=== PATIENT | male | born 1965 | race Asian ===

== ENCOUNTER 2016-08-21 14:04 | Emergency (ER) | payer MEDICAID ==
[~2016-08-21] VITALS: Ht 167.6 cm; Wt 49.4 kg
[~2016-08-21 14:04] MED LIST: ACETAMINOPHEN-1 EAC1 ORAL; ALLEGRA ALLERGY60 M1 PO; ASPIR 8181 MG ORAL; ATORVASTATIN CA40 MG ORAL; BACTRIM DS TAB1 EAC1 ORAL; BENAZEPRIL HCL10 MG ORAL; CLOTRIMAZOLE15 GM TOPIC; FLUTICASONE PRO16 G1 NASAL; GLIPIZIDE5 MG ORAL; LANTUS SOL100 UNIT/1 SUBQ; LEVAQUIN500 MG ORAL; LEVEMIR FL100 UNIT/1 SUBQ; LORATADINE10 M1 PO; MAGNESIUM CITR296 M1 PO; METFORMIN HCL1000 M1 ORAL; MIRALAX17 G2 ORAL; NOVOLOG100 UNITS1; PROVENTIL HFA6.7 G1 IH; TRAMADOL HCL50 MG ORAL
[2016-08-21 14:15] VITALS: BP 107/69
[2016-08-21 14:54] LABS: BASOPHILS % (AUTO) 0.8 % (0.0-2.0); EOSINOPHILS % (AUTO) 2.3 % (0.0-3.0); LYMPHOCYTES % (AUTO) 22.5 % (20.0-45.0); MEAN CORPUSCULAR HEMOGLOBIN 30.4 PG (27.0-31.0); MEAN CORPUSCULAR VOLUME 87 FL (80-99); MONOCYTES % (AUTO) 6.1 % (1.0-10.0); NEUTROPHILS % (AUTO) 68.2 % (45.0-75.0); PLATELET COUNT 238 K/UL (150-450); RED BLOOD COUNT 4.36 M/UL (4.70-6.10); RED CELL DISTRIBUTION WIDTH 11.6 % (11.6-14.8); WHITE BLOOD COUNT 8.1 K/UL (4.8-10.8)
[2016-08-21 14:55] VITALS: BP 107/77
[2016-08-21 15:08] LABS: ALANINE AMINOTRANSFERASE 10 U/L (3-41); ALBUMIN/GLOBULIN RATIO 1.4 (1.0-2.7); ANION GAP 17 (5-15); ASPARTATE AMINO TRANSFERASE 11 U/L (5-40); CALCIUM 9.1 mg/dL (8.6-10.2); CARBON DIOXIDE 21 mEQ/L (20-30); CHLORIDE 89 mEQ/L (98-107); CREATININE 0.9 mg/dL (0.7-1.2); GLOMERULAR FILTRATION RATE > 60 mL/min (>60); HEMOLYSIS 4; MAGNESIUM 1.7 mg/dL (1.7-2.5); POTASSIUM 4.2 mEQ/L (3.4-4.9); SODIUM 127 mEQ/L (135-145); TOTAL PROTEIN 7.2 g/dL (6.6-8.7)
[2016-08-21 16:49] VITALS: BP 112/81
--- NOTE | 2016-08-21 16:54 | Emergency Room Report ---
History of Present Illness General Chief Complaint: General Complaint Source: Patient Present Illness HPI 51-year-old male presents ED for evaluation. Patient referred here by PMD because his blood sugar was high. Accu-Chek here is critically high. Patient notes history of diabetes. Is on medications at home. States that he is not taking the medications for one week because he is trying to hold herbal therapies. States he feels okay. Denies any fevers or chills. Denies weakness. Denies nausea or vomiting. No other aggravating or relieving factors. Denies any other associated symptoms Allergies: Coded Allergies: No Known Allergies (Unverified , 06/03/14) Patient History Past Medical History: DM Past Surgical History: none Pertinent Family History: none Social History: Denies: alcohol use, drug use, smoking Immunizations: UTD Reviewed Nursing Documentation: PMH: Agreed, PSxH: Agreed Nursing Documentation-PMH Past Medical History: No History, Except For Hx Diabetes: Yes Review of Systems All Other Systems: negative except mentioned in HPI Physical Exam Vital Signs Date Time Temp Pulse Resp B/P Pulse Ox O2 Delivery O2 Flow Rate FiO2 08/21/16 14:10 97.7 74 18 107/69 98 Room Air Sp02 EP Interpretation: reviewed, normal General Appearance: no apparent distress, alert, GCS 15, non-toxic Head: normocephalic, atraumatic Eyes: bilateral eye PERRL, bilateral eye normal inspection ENT: hearing grossly normal, normal pharynx, no angioedema, normal voice Neck: full range of motion, supple/symm/no masses Respiratory: chest non-tender, lungs clear, normal breath sounds, speaking full sentences Cardiovascular #1: regular rate, rhythm, no edema Cardiovascular #2: 2+ carotid (R), 2+ carotid (L), 2+ radial (R), 2+ radial (L) , 2+ dorsalis pedis (R), 2+ dorsalis pedis (L) Gastrointestinal: normal bowel sounds, non tender, soft, non-distended, no guarding, no rebound Rectal: deferred Genitourinary: normal inspection, no CVA tenderness Musculoskeletal: back normal, gait/station normal, normal range of motion, non- tender Neurologic: alert, oriented x3, responsive, motor strength/tone normal, sensory intact, speech normal Psychiatric: judgement/insight normal, memory normal, mood/affect normal, no suicidal/homicidal ideation Reflexes: 3+ bicep (R), 3+ bicep (L), 3+ tricep (R), 3+ tricep (L), 3+ knee (R) , 3+ knee (L) Skin: normal color, no rash, warm/dry, well hydrated Lymphatic: no adenopathy Medical Decision Making Diagnostic Impression: Primary Impression: Uncontrolled diabetes mellitus Qualified Codes: E13.8 - Other specified diabetes mellitus with unspecified complications; E13.65 - Other specified diabetes mellitus with hyperglycemia ER Course Hospital Course 51-year-old male presenting to ED with elevated BS. not compliant with his meds Differential diagnoses include: ETOH/drug ingestion, sepsis, DKA Clinical course Patient placed on stretcher. 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 After initial history and physical I ordered labs, IV fluids, urine Labs-glucose > 500, minimallly elevated anion gap, bicarbonate normal, electrolytes ok. no leukocytosis. acetone negative Patient given IV fluids, insulin. On reassessment Accu-Chek within normal limits. Encourage patient on the importance of taking his medications as directed. i. I feel this is a highly complex case requiring extensive working including EKG/Rhythm strip, Xray/CT/US, Blood/urine lab work, repeat exams while in ED, and administration of strong opiates/narcotics for pain control, admission to hospital or close patient follow up. diagnosis -uncontrolled diabetes mellitus Stable and discharged to home. Take medications as directed. Followup with PMD. Return to ED if symptoms recur or worsen Labs Test 08/21/16 14:30 White Blood Count 8.1 K/UL (4.8-10.8) Red Blood Count 4.36 M/UL (4.70-6.10) Hemoglobin 13.3 G/DL (14.2-18.0) Hematocrit 38.0 % (42.0-52.0) Mean Corpuscular Volume 87 FL (80-99) Mean Corpuscular Hemoglobin 30.4 PG (27.0-31.0) Mean Corpuscular Hemoglobin Concent 35.0 G/DL (32.0-36.0) Red Cell Distribution Width 11.6 % (11.6-14.8) Platelet Count 238 K/UL (150-450) Mean Platelet Volume 10.0 FL (6.5-10.1) Neutrophils (%) (Auto) 68.2 % (45.0-75.0) Lymphocytes (%) (Auto) 22.5 % (20.0-45.0) Monocytes (%) (Auto) 6.1 % (1.0-10.0) Eosinophils (%) (Auto) 2.3 % (0.0-3.0) Basophils (%) (Auto) 0.8 % (0.0-2.0) Sodium Level 127 mEQ/L (135-145) Potassium Level 4.2 mEQ/L (3.4-4.9) Chloride Level 89 mEQ/L (98-107) Carbon Dioxide Level 21 mEQ/L (20-30) Anion Gap 17 (5-15) Blood Urea Nitrogen 16 mg/dL (7-23) Creatinine 0.9 mg/dL (0.7-1.2) Estimat Glomerular Filtration Rate > 60 mL/min (>60) Glucose Level 587 mg/dL (74-106) Calcium Level 9.1 mg/dL (8.6-10.2) Magnesium Level 1.7 mg/dL (1.7-2.5) Total Bilirubin 0.7 mg/dL (0.0-1.2) Aspartate Amino Transf (AST/SGOT) 11 U/L (5-40) Alanine Aminotransferase (ALT/SGPT) 10 U/L (3-41) Alkaline Phosphatase 79 U/L (40-129) Total Protein 7.2 g/dL (6.6-8.7) Albumin 4.2 g/dL (3.5-5.2) Globulin 3.0 g/dL Albumin/Globulin Ratio 1.4 (1.0-2.7) Acetone Level Negative (NEGATIVE) Last Vital Signs Date Time Temp Pulse Resp B/P Pulse Ox O2 Delivery O2 Flow Rate FiO2 08/21/16 16:49 97.6 64 12 112/81 98 Room Air Status: improved Disposition: HOME, SELF-CARE Condition: Stable Referrals: SHANAE LYNN M.D. (PCP) Patient Instructions: Blood Glucose Monitoring, Adult Additional Instructions: take your medications as directed. TROY REYES M.D. Aug 21, 2016 16:54
== END 2016-08-21 16:50 | disposition home or self-care (01) ==
LOC: EMR 15:10
DX: E11.65 Type 2 diabetes mellitus with hyperglycemia (principal); Z91.14 Patient's other noncompliance with medication regimen
CPT/HCPCS: 36415; 80053; 82009; 82962; 83735; 85025; 96360; 96374; 96375

== ENCOUNTER 2017-01-01 13:48 | Emergency (ER) | payer MEDICAID ==
[~2017-01-01] VITALS: Ht 167.6 cm; Wt 49.4 kg
[2017-01-01 14:04] VITALS: BP 126/76
--- NOTE | 2017-01-01 14:49 | Emergency Room Report ---
History of Present Illness General Chief Complaint: Abnormal Labs Source: Patient, Medical Record Present Illness HPI 51YOM [employer] patient walked in "because my daughter told me to come in" because of elevated blood sugar in the 400s at home after eating lunch. Last took his Metformin/Glipizide yesterday. Denies abd pain, nausea/vomiting, chest pain, SOB, fever/chills, headache, urinary complaints. On ROS, c/o left knee pain for 3 days. Denies trauma. Denies rash, swelling to left knee. Denies history of OA, RA. Allergies: Coded Allergies: No Known Allergies (Unverified , 06/03/14) Patient History Past Medical History: DM Past Surgical History: none Pertinent Family History: none Social History: Denies: alcohol use, drug use, smoking Immunizations: UTD Reviewed Nursing Documentation: PMH: Agreed, PSxH: Agreed Nursing Documentation-PMH Past Medical History: No History, Except For Hx Diabetes: Yes Review of Systems All Other Systems: negative except mentioned in HPI Physical Exam Vital Signs Date Time Temp Pulse Resp B/P Pulse Ox O2 Delivery O2 Flow Rate FiO2 01/01/17 14:04 98.2 75 16 126/76 100 Room Air Sp02 EP Interpretation: reviewed, normal General Appearance: normal inspection, well appearing, no apparent distress, alert, GCS 15, non-toxic, other - Very well appearing, smiling. LYing on stretcher, no acute distress Head: normocephalic, atraumatic Eyes: bilateral eye EOMI, bilateral eye PERRL ENT: normal ENT inspection, hearing grossly normal, normal voice Neck: normal inspection, full range of motion, supple, no bony tend Respiratory: normal inspection, lungs clear, normal breath sounds, no respiratory distress, no retraction, no wheezing Cardiovascular #1: regular rate, rhythm, no edema Gastrointestinal: normal inspection, normal bowel sounds, non tender, soft, no guarding, no hernia Genitourinary: no CVA tenderness Musculoskeletal: other - Left knee: ROM intact. Atraumatic. Non-tender.. No rash or palpable warmth, swelling Neurologic: normal inspection, alert, oriented x3, responsive, meat cutter III-XII nml as tested, motor strength/tone normal, speech normal Psychiatric: normal inspection, judgement/insight normal, mood/affect normal Skin: normal inspection, normal color, no rash Medical Decision Making Diagnostic Impression: Primary Impression: Uncontrolled diabetes mellitus Qualified Codes: E11.65 - Type 2 diabetes mellitus with hyperglycemia; Z79.4 - terminal operator (current) use of insulin Additional Impression: Left knee pain Qualified Codes: M25.562 - Pain in left knee ER Course Uncontrolled DM - Non compliant with meds since yesterday. - VSS. Afebrile. - Well appearing, no acute distress - Non-focal abdomen - Very low suspicion for DKA - Elevated glucose decreased with IVF NS and IV insulin - Rx's refilled Left knee pain - Atraumatic - No sign of cellulitis, sepsis, septic arthritis - Rx Tylenol DC HOME Last Vital Signs Date Time Temp Pulse Resp B/P Pulse Ox O2 Delivery O2 Flow Rate FiO2 01/01/17 14:04 98.2 75 16 126/76 100 Room Air Status: improved Disposition: HOME, SELF-CARE Scripts Acetaminophen (Tylenol) 325 Mg Tablet 650 MG ORAL Q8H Y for Prn Pain/Headache/Temp > 101 for 7 Days, #30 TAB 0 Refills Prov: TEJINDER MARIO M.D. 01/01/17 Glipizide* (GLIPIZIDE*) 5 Mg Tablet 5 MG ORAL BIDAC for 30 Days, #60 TAB Prov: TEJINDER MARIO M.D. 01/01/17 Metformin Hcl* (METFORMIN HCL*) 1,000 Mg Tablet 1000 MG ORAL BID for 30 Days, #60 TAB Prov: TEJINDER MARIO M.D. 01/01/17 TEJINDER MARIO M.D. Jan 01, 2017 14:49
[2017-01-01 14:56] LABS: APPEARANCE,URINE CLEAR; KETONES,URINE NEGATIVE (NEGATIVE); LEUKOCYTE ESTERASE ,URINE NEGATIVE (NEGATIVE); NITRITE,URINE NEGATIVE (NEGATIVE); PH,URINE 5 (4.5-8.0); PROTEIN,URINE NEGATIVE (NEGATIVE); UROBILINOGEN,URINE NORMAL MG/DL (0.0-1.0)
[2017-01-01 15:00] LABS: BASOPHILS % (AUTO) 0.8 % (0.0-2.0); EOSINOPHILS % (AUTO) 2.8 % (0.0-3.0); LYMPHOCYTES % (AUTO) 23.2 % (20.0-45.0); MEAN CORPUSCULAR HGB CONC 32.1 G/DL (32.0-36.0); MEAN CORPUSCULAR VOLUME 90 FL (80-99); MEAN PLATELET VOLUME 8.4 FL (6.5-10.1); MONOCYTES % (AUTO) 6.7 % (1.0-10.0); NEUTROPHILS % (AUTO) 66.4 % (45.0-75.0); PLATELET COUNT 245 K/UL (150-450); RED BLOOD COUNT 4.11 M/UL (4.70-6.10); RED CELL DISTRIBUTION WIDTH 12.1 % (11.6-14.8)
[2017-01-01 15:05] LABS: ALANINE AMINOTRANSFERASE 7 U/L (3-41); ALBUMIN/GLOBULIN RATIO 0.9 (1.0-2.7); ANION GAP 17 (5-15); ASPARTATE AMINO TRANSFERASE 10 U/L (5-40); CALCIUM 9.1 mg/dL (8.6-10.2); CARBON DIOXIDE 23 mEQ/L (20-30); CHLORIDE 90 mEQ/L (98-107); CREATININE 0.8 mg/dL (0.7-1.2); GLOMERULAR FILTRATION RATE > 60 mL/min (>60); HEMOLYSIS 8; POTASSIUM 4.2 mEQ/L (3.4-4.9); SODIUM 130 mEQ/L (135-145); TOTAL PROTEIN 7.4 g/dL (6.6-8.7)
[2017-01-01] MEDS ORDERED: GLIPIZIDE5 MG ORAL (15:43)
[2017-01-01] MEDS ORDERED: TYLENOL325 MG ORAL (15:43)
[2017-01-01] MEDS ORDERED: METFORMIN HCL1000 M1 ORAL (15:43)
--- NOTE | 2017-01-01 16:10 | Diagnostic Imaging Report ---
Indication: SOB Technique: One view of the chest Comparison: none Findings: Lungs and pleural spaces are clear. Heart size is normal Impression: No acute process
[2017-01-01 16:23] VITALS: BP 118/72
== END 2017-01-01 16:27 | disposition home or self-care (01) ==
LOC: EMR 15:03
DX: E11.65 Type 2 diabetes mellitus with hyperglycemia (principal); Z79.84 Long term (current) use of oral hypoglycemic drugs; M25.562 Pain in left knee
CPT/HCPCS: 36415; 71010; 80053; 81003; 85025; 96360; 96374; 99284; J1815

== ENCOUNTER 2017-02-23 09:23 | Emergency (ER) | payer MEDICAID ==
[~2017-02-23] VITALS: Ht 167.6 cm; Wt 56.7 kg
[~2017-02-23 09:23] MED LIST changes: +TYLENOL325 MG ORAL
[2017-02-23 09:42] VITALS: BP 131/87
[2017-02-23] MEDS ORDERED: TYLENOL325 MG ORAL (10:42)
[2017-02-23 10:50] VITALS: BP 131/87
--- NOTE | 2017-02-23 11:10 | Diagnostic Imaging Report ---
Indication: Pain Findings: 2 views of the left femur were obtained. No acute fractures, malalignment, erosions or periostitis are identified. Bone mineralization is within normal limits. Soft tissues are unremarkable. Vascular calcifications are present. Calcifications of the seminal vesicles incidentally noted. Impression: Negative examination of the femur
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
== END 2017-02-23 10:50 | disposition home or self-care (01) ==
LOC: EMR 09:46
DX: S70.12XA Contusion of left thigh, initial encounter (principal); V43.52XA Car driver injured in collision with other type car in traffic accident, initial encounter; Y92.410 Unspecified street and highway as the place of occurrence of the external cause; E11.9 Type 2 diabetes mellitus without complications
CPT/HCPCS: 99283

== ENCOUNTER 2017-08-21 15:20 | Emergency (ER) | payer MEDICAID ==
[~2017-08-21] VITALS: Ht 160 cm; Wt 54.4 kg
--- NOTE | 2017-08-21 15:30 | Emergency Room Report ---
History of Present Illness General Chief Complaint: To Be Triaged Source: Patient Present Illness HPI 52YOM walk-in with elevated glucose - called by PMD today that testing done yesterday showed glucose 600 and "go to ER." Patient states his meds/Dm supplies including glucometer paper and insulin needles NOT refilled for some reason. Known NIDDM, history of multiple visits here for similar, non-compliance Denies abdominal pain, chest pain, shortness of breath, vomiting, polyuria, fever/ chills Allergies: Coded Allergies: No Known Allergies (Unverified , 06/03/14) Patient History Past Medical History: DM Past Surgical History: none Pertinent Family History: none Social History: Denies: smoking, alcohol use, drug use Immunizations: UTD Reviewed Nursing Documentation: PMH: Agreed, PSxH: Agreed Nursing Documentation-PMH Hx Diabetes: Yes Review of Systems All Other Systems: negative except mentioned in HPI Physical Exam Sp02 EP Interpretation: reviewed, normal General Appearance: normal inspection, well appearing, no apparent distress, alert, GCS 15, non-toxic Head: normocephalic, atraumatic Eyes: bilateral eye PERRL, bilateral eye EOMI ENT: normal ENT inspection, hearing grossly normal, normal pharynx, no angioedema, normal voice, TMs + canals normal, uvula midline, moist mucus membranes Neck: normal inspection, full range of motion, supple, thyroid normal, no meningismus, no bony tend Respiratory: normal inspection, lungs clear, normal breath sounds, no rhonchi, no respiratory distress, no retraction, no accessory muscle use, no wheezing, speaking full sentences Cardiovascular #1: regular rate, rhythm, no edema, no JVD, normal capillary refill Gastrointestinal: normal inspection, normal bowel sounds, non tender, soft, no mass, no peritonitis, non-distended, no guarding, no hernia, no pulsatile mass Genitourinary: no CVA tenderness Musculoskeletal: normal inspection, back normal, normal range of motion, no calf tenderness, pelvis stable, Shital's Sign negative Neurologic: normal inspection, alert, oriented x3, responsive, radio presenter III-XII nml as tested, motor strength/tone normal, cerebellar normal, normal gait, speech normal Psychiatric: normal inspection, judgement/insight normal, mood/affect normal, no suicidal/homicidal ideation, no delusions Skin: normal inspection, normal color, no rash Lymphatic: normal inspection, no adenopathy Medical Decision Making Diagnostic Impression: Primary Impression: Uncontrolled diabetes mellitus Qualified Codes: E11.65 - Type 2 diabetes mellitus with hyperglycemia; Z79.4 - snf (current) use of insulin ER Course RN spent considerable time on phone with patient's PMD office requesting that insulin meds and supplies be re-prescribed and sent to patients pharmacy, which was done. VSS, afebrile here. Patient not ill appearing or in DKA. Was given SC insulin regular here with improvement in blood sugar to 400s DC ER course: Patient has remained stable during ED stay. Disposition: Patient is to be discharged to home. Prescriptions sent to pharm by PMD office Patient is instructed to follow up with their primary care doctor within 5 days. Strict return precautions discussed with patient such as fever, chills, worsening/severe pain, nausea, vomiting, which may indicate severe illness. Patient verbalizes understanding and agrees with plan. Please note that this Emergency Department Report was dictated using [employer]travograph operator technology software, occasionally this can lead to erroneous entry secondary to interpretation by the dictation equipment Status: improved Disposition: HOME, SELF-CARE TEJINDER MARIO M.D. Aug 21, 2017 15:30
[2017-08-21 16:47] VITALS: BP 128/83
[2017-08-21 16:53] VITALS: BP 123/82
== END 2017-08-21 16:54 | disposition home or self-care (01) ==
LOC: EMR 15:42
DX: E11.65 Type 2 diabetes mellitus with hyperglycemia (principal); Z79.4 Long term (current) use of insulin
CPT/HCPCS: 82962; 96372; 99283; J1815

== ENCOUNTER 2017-10-15 15:29 | Emergency (ER) | payer MEDICAID ==
[~2017-10-15] VITALS: Ht 167.6 cm; Wt 52.6 kg
--- NOTE | 2017-10-15 15:46 | Emergency Room Report ---
History of Present Illness General Chief Complaint: Abdominal Pain Source: Patient Present Illness HPI Patient's 52-year-old male brought in by EMS after increased abdominal pain as well as elevated blood sugar. Patient noted to be type II diabetic. The patient was noted to have increased epigastric pain. The patient was noted to have prior history of pancreatitis sugar was noted to be greater than 500 at home. Allergies: Coded Allergies: No Known Allergies (Unverified , 06/03/14) Patient History Past Medical History: see triage record Reviewed Nursing Documentation: PMH: Agreed; PSxH: Agreed Nursing Documentation-PMH Hx Diabetes: Yes Review of Systems All Other Systems: negative except mentioned in HPI Physical Exam Vital Signs Date Time Temp Pulse Resp B/P (MAP) Pulse Ox O2 Delivery O2 Flow Rate FiO2 10/15/17 15:22 98.7 66 16 132/84 99 Room Air 98.8 Sp02 EP Interpretation: reviewed, normal General Appearance: normal inspection, well appearing, no apparent distress, alert, GCS 15 Head: atraumatic ENT: normal ENT inspection, hearing grossly normal, normal voice Neck: normal inspection, full range of motion, supple, no bony tend Respiratory: normal inspection, lungs clear, normal breath sounds, no respiratory distress, no retraction, no wheezing Cardiovascular #1: regular rate, rhythm, no edema Gastrointestinal: normal inspection, normal bowel sounds, non tender, soft, no guarding, no hernia Genitourinary: no CVA tenderness Musculoskeletal: normal inspection, back normal, normal range of motion Neurologic: normal inspection, alert, oriented x3, responsive, speech normal Psychiatric: normal inspection, judgement/insight normal, mood/affect normal Skin: normal inspection, normal color, no rash Medical Decision Making Diagnostic Impression: Primary Impression: Pancreatitis Additional Impression: Uncontrolled diabetes mellitus ER Course Patient presented for abdominal pain. Differential diagnoses included ischemic bowel, appendicitis, perforated viscus, abdominal aortic aneurysm, inferior myocardial infarction, viral gastroenteritis Because of complexity of patient's case laboratory testing and imaging studies were ordered. A testing showed a markedly elevated blood sugar. The patient did have evidence of pancreatitis with markedly elevated lipase. Patient had previous episodes of pancreatitis. The patient had previous imaging which showed no evidence of gallstones. Dr. Reilly Chong [facility]. Labs Test 10/15/17 15:45 White Blood Count 10.9 K/UL (4.8-10.8) Red Blood Count 4.38 M/UL (4.70-6.10) Hemoglobin 13.1 G/DL (14.2-18.0) Hematocrit 37.3 % (42.0-52.0) Mean Corpuscular Volume 85 FL (80-99) Mean Corpuscular Hemoglobin 30.0 PG (27.0-31.0) Mean Corpuscular Hemoglobin Concent 35.2 G/DL (32.0-36.0) Red Cell Distribution Width 11.3 % (11.6-14.8) Platelet Count 209 K/UL (150-450) Mean Platelet Volume 10.5 FL (6.5-10.1) Neutrophils (%) (Auto) 78.9 % (45.0-75.0) Lymphocytes (%) (Auto) 13.1 % (20.0-45.0) Monocytes (%) (Auto) 5.9 % (1.0-10.0) Eosinophils (%) (Auto) 1.5 % (0.0-3.0) Basophils (%) (Auto) 0.7 % (0.0-2.0) Urine Color Pale yellow Urine Appearance Clear Urine pH 5 (4.5-8.0) Urine Specific [place] 1.010 (1.005-1.035) Urine Protein 2+ (NEGATIVE) Urine Glucose (UA) 4+ (NEGATIVE) Urine Ketones Negative (NEGATIVE) Urine Occult Blood 1+ (NEGATIVE) Urine Nitrite Negative (NEGATIVE) Urine Bilirubin Negative (NEGATIVE) Urine Urobilinogen Normal MG/DL (0.0-1.0) Urine Leukocyte Esterase 1+ (NEGATIVE) Urine RBC 0-2 /HPF (0 - 0) Urine WBC 0-2 /HPF (0 - 0) Urine Squamous Epithelial Cells None /LPF (NONE/OCC) Urine Bacteria Few /HPF (NONE) Sodium Level 128 MMOL/L (136-145) Potassium Level 4.5 MMOL/L (3.5-5.1) Chloride Level 92 MMOL/L (98-107) Carbon Dioxide Level 28 MMOL/L (21-32) Anion Gap 8 mmol/L (5-15) Blood Urea Nitrogen 16 mg/dL (7-18) Creatinine 1.2 MG/DL (0.55-1.30) Estimat Glomerular Filtration Rate > 60 mL/min (>60) Glucose Level 617 MG/DL (74-106) Calcium Level 9.9 MG/DL (8.5-10.1) Magnesium Level 2.0 MG/DL (1.8-2.4) Total Bilirubin 0.9 MG/DL (0.2-1.0) Aspartate Amino Transf (AST/SGOT) 9 U/L (15-37) Alanine Aminotransferase (ALT/SGPT) 16 U/L (12-78) Alkaline Phosphatase 103 U/L (46-116) Troponin I 0.000 ng/mL (0.000-0.056) Total Protein 8.3 G/DL (6.4-8.2) Albumin 3.8 G/DL (3.4-5.0) Globulin 4.5 g/dL Albumin/Globulin Ratio 0.8 (1.0-2.7) Lipase 3984 U/L (73-393) Acetone Level Negative (NEGATIVE) EKG Diagnostic Results Rate: normal Rhythm: NSR ST Segments: no acute changes Last Vital Signs Date Time Temp Pulse Resp B/P (MAP) Pulse Ox O2 Delivery O2 Flow Rate FiO2 10/15/17 15:22 98.7 66 16 132/84 99 Room Air 98.8 Status: improved [facility] Condition: Stable Prnaay Borrero Oct 15, 2017 15:46
[2017-10-15 16:16] LABS: APPEARANCE,URINE CLEAR; BILIRUBIN, URINE NEGATIVE (NEGATIVE); COLOR,URINE PALE YELLOW; GLUCOSE, URINE (UA) 4+ (NEGATIVE); KETONES,URINE NEGATIVE (NEGATIVE); LEUKOCYTE ESTERASE ,URINE 1+ (NEGATIVE); NITRITE,URINE NEGATIVE (NEGATIVE); PH,URINE 5 (4.5-8.0); PROTEIN,URINE 2+ (NEGATIVE); UROBILINOGEN,URINE NORMAL MG/DL (0.0-1.0)
[2017-10-15 16:27] LABS: BASOPHILS % (AUTO) 0.7 % (0.0-2.0); EOSINOPHILS % (AUTO) 1.5 % (0.0-3.0); HEMATOCRIT 37.3 % (42.0-52.0); HEMOGLOBIN 13.1 G/DL (14.2-18.0); LYMPHOCYTES % (AUTO) 13.1 % (20.0-45.0); MEAN CORPUSCULAR VOLUME 85 FL (80-99); MONOCYTES % (AUTO) 5.9 % (1.0-10.0); NEUTROPHILS % (AUTO) 78.9 % (45.0-75.0); PLATELET COUNT 209 K/UL (150-450); RED BLOOD COUNT 4.38 M/UL (4.70-6.10); RED CELL DISTRIBUTION WIDTH 11.3 % (11.6-14.8); WHITE BLOOD COUNT 10.9 K/UL (4.8-10.8)
[2017-10-15 16:42] LABS: ALANINE AMINOTRANSFERASE 16 U/L (12-78); ALBUMIN 3.8 G/DL (3.4-5.0); ALBUMIN/GLOBULIN RATIO 0.8 (1.0-2.7); ALKALINE PHOSPHATASE 103 U/L (46-116); ANION GAP 8 mmol/L (5-15); ASPARTATE AMINO TRANSFERASE 9 U/L (15-37); BILIRUBIN,TOTAL 0.9 MG/DL (0.2-1.0); BLOOD UREA NITROGEN 16 mg/dL (7-18); CALCIUM 9.9 MG/DL (8.5-10.1); CARBON DIOXIDE 28 MMOL/L (21-32); CHLORIDE 92 MMOL/L (98-107); CREATININE 1.2 MG/DL (0.55-1.30); POTASSIUM 4.5 MMOL/L (3.5-5.1); SODIUM 128 MMOL/L (136-145)
[2017-10-15 16:56] VITALS: BP 134/77
[2017-10-15] MEDS ORDERED: GLIPIZIDE5 MG ORAL (17:17)
[2017-10-15] MEDS ORDERED: METFORMIN HCL1000 M1 ORAL (17:26)
[2017-10-15 18:00] VITALS: BP 156/84
[2017-10-15 19:38] VITALS: BP 137/80
[2017-10-15 21:15] VITALS: BP 147/81
[2017-10-15 21:17] VITALS: BP 147/81
--- NOTE | 2017-10-16 14:54 | Cardiology Report ---
APPROVED REPORT EKG Measurement Heart [id number] Normal sinus rhythm Low voltage QRS Borderline ECG
== END 2017-10-15 21:17 | disposition short-term general hospital (02) ==
LOC: EDBD 15:29 → EMR 17:03
DX: K85.90 Acute pancreatitis without necrosis or infection, unspecified (principal); E11.65 Type 2 diabetes mellitus with hyperglycemia
CPT/HCPCS: 36415; 80053; 81003; 82009; 82962; 83690; 83735; 84484; 85025; 93005; 96374; 96375; 99285; J1815; J2405; S0028

== ENCOUNTER 2020-05-10 23:20 | Emergency (ER) | payer MEDICAID ==
[~2020-05-10] VITALS: Ht 175.3 cm; Wt 79.4 kg
[2020-05-10 23:55] VITALS: BP 126/81
[2020-05-11 00:04] LABS: APPEARANCE,URINE CLEAR; BILIRUBIN, URINE NEGATIVE (NEGATIVE); COLOR,URINE PALE YELLOW; GLUCOSE, URINE (UA) 4+ (NEGATIVE); KETONES,URINE NEGATIVE (NEGATIVE); LEUKOCYTE ESTERASE ,URINE 1+ (NEGATIVE); NITRITE,URINE NEGATIVE (NEGATIVE); PH,URINE 6.5 (4.5-8.0); PROTEIN,URINE 2+ (NEGATIVE); UROBILINOGEN,URINE NORMAL MG/DL (0.0-1.0)
[2020-05-11 00:04] LABS: BASOPHILS % (AUTO) 0.9 % (0.0-2.0); EOSINOPHILS % (AUTO) 2.7 % (0.0-3.0); HEMATOCRIT 32.8 % (42.0-52.0); HEMOGLOBIN 11.2 G/DL (14.2-18.0); LYMPHOCYTES % (AUTO) 20.6 % (20.0-45.0); MEAN CORPUSCULAR VOLUME 92 FL (80-99); MONOCYTES % (AUTO) 6.2 % (1.0-10.0); NEUTROPHILS % (AUTO) 69.6 % (45.0-75.0); PLATELET COUNT 258 K/UL (150-450); RED BLOOD COUNT 3.57 M/UL (4.70-6.10); RED CELL DISTRIBUTION WIDTH 13.1 % (11.6-14.8); WHITE BLOOD COUNT 8.2 K/UL (4.8-10.8)
[2020-05-11 00:15] LABS: INR 0.9 (0.9-1.1)
--- NOTE | 2020-05-11 00:20 | Emergency Room Report ---
History of Present Illness General Chief Complaint: Multiple Trauma/Fall Source: Patient Present Illness HPI 55-year-old male with history of insulin-dependent diabetes presents by ambulance with complaint of generalized weakness x3 days. Patient does not have insurance and so ran out of his Metformin, glipizide, and insulin and has been unable to take anything to control his diabetes at home. He explains that he has had generalized weakness resulting in several falls over the last 2 weeks. Denies any chest pain, nausea, vomiting, headache, syncope, back pain, neck pain, abdominal pain, melena, hematochezia, or diarrhea, hematuria, dysuria. He does endorse polyuria, polydipsia and increased thirst. He took his blood sugar today prior to arrival which read "high". The patient's symptoms were gradual onset, severity was moderate, duration since 3 days. Quality: Thirsty Past medical history: Diabetes, noncompliance Past surgical history: Denies Smoking: Denies Alcohol use: Denies Drug use: Denies Review of systems: CONST: No fevers ++ chills, No night sweats PULMONARY: No productive cough, No shortness of breath CARDIAC: No chest pain, No palpitations GI: No vomiting, No diarrhea , No melena_or_BRBPR : No dysuria, No hematuria, No discharge NEURO: No new_focal_weakness_or_numbness, No confusion, No vision changes 14 point Review of Systems is otherwise negative except per HPI Physical Exam: GENERAL: Awake_alert_ nontoxic, no acute distress Spo2 98% on RA -normal EYES: Extraocular muscles are intact. Conjunctivae clear. Lids without swelling ENT: External nose and ear normal_in_appearance. Oropharynx clear. Head_atraumatic, dry_oral_mucosa NECK: No JVD. No meningismus. No thyromegaly. Supple. Trachea midline. No cervical, thoracic, lumbar spinal step-offs or deformity RESP: Normal respiratory effort. Symmetric rise. No stridor. Clear_to_auscultation_No_rales_No_wheezes CARDIAC: Regular rate and regular rhytm. No_significant pedal edema. ABDOMEN: Soft. Nondistended. Nontender_No_rebound_or_guarding. No pelvic instability MSK: Normal muscle tone, without rigidity. Extremities without asymmetric deformity or swelling. SKIN: Warm and dry. No visible cyanosis or pallor. Old scabs to the bilateral anterior knees. No deformity NEUROLOGIC: Alert, oriented x3. Motor_and_sensation_grossly_intact. No truncal ataxia. Gait_normal Psych: Normal mood and affect, normal judgment and insight - COORDINATION OF CARE Case was discussed with: Patient , Patient's Physician Any labs and imaging that were ordered were interpreted as part of the medical decision making: Medical Decision Making/Plan: Differential diagnosis includes dehydration, hypovolemia, electrolyte derangement such as DKA/HHS, hyponatremia / hypoglycemia, GI bleed, anemia, UTI, among others. 55-year-old male here with uncontrolled diabetes. Non compliant x 3 days 2/2 no insurance. The patient feels generally weak but has no focal neurologic deficits, abnormal muscle tone, hypo/hyperreflexia, or fatigability. No evidence of stroke, spinal cord emergency, neuromuscular junction disorder, or multiple sclerosis at this time. Labs were concerning for critical hyperglycemia. Accu-Chek read as high prior to arrival to ED. Still "high" after NS 2L IV and Insulin 10 U IV. Another 2L and Insulin 10U IV was ordered. Hemoglobin A1c is 14.3. No anion gap metabolic acidosis. Anion gap is 10. Lactate is within normal limits. Serum osm is within normal limits. Troponin is negative. We will continue aggressive hydration. Patient has severely uncontrolled diabetes causing syncope at home, high risk for bounce back and decompensation as he has no way to obtain his home meds for his DM. CT head was negative for acute intracranial hemorrhage. No fracture on CT cervical spine. Patient is capitated to [facility] The patient has been stabilized to the best of this emergency department's capabilities. Given the patient's medical needs, appropriate facilities for transfer were discussed and the decision has been made to transfer this patient to [facility]. The receiving facility has the capacity and capabilities to provide care for the patient. I spoke with Dr Lindsay who accepted the patient in transfer. The patient has been informed and updated of their current clinical status. The patient has given verbal consent for the transfer. The risks and benefits were explained and the patient verbalizes their understanding. 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 COVID-19 Screening: Negative COVID-19 COVID-19 Testing Source: [employer] REPRESENTATIVE Nursing Documentation-PMH Past Medical History: No History, Except For Hx Diabetes: Yes - DM II Physical Exam Vital Signs Date Time Temp Pulse Resp B/P (MAP) Pulse Ox O2 Delivery O2 Flow Rate FiO2 05/10/20 23:24 98.4 88 22 189/96 (127) 98 Room Air Sp02 EP Interpretation: reviewed, normal Medical Decision Making Diagnostic Impression: Primary Impression: Hyperglycemia Additional Impressions: Uncontrolled diabetes mellitus Anemia EKG Diagnostic Results Troponin ordered: Yes When was troponin ordered?: May 11, 2020 EKG Time: 00:19 Rate: normal Rhythm: NSR ST Segments: no acute changes ASA given to the pt in ED: No PA Scribe Text 12-lead EKG (interpreted by me) Time: 2353 Indication: Rhythm analysis Tracing visualized and Interpreted by me. Rhythm: Normal sinus rhythm Rate: 74 bpm QTc: 430 Morphology: No_significant_ST_elevations_or_depressions, No STEMI Impression: Normal_sinus_rhythm_without_significant_abnormality Rhythm Strip Diag. Results Rhythm Strip Time: 00:20 EP Interpretation: yes Rate: 88 Rhythm: NSR, no PVC's, no ectopy CT/MRI/US Diagnostic Results CT/MRI/US Diagnostic Results : Impression CT Head no Contrast EXAM: CT Head Without Intravenous Contrast FINDINGS: Brain: No acute hemorrhage, large hypodensity, or significant mass effect. Ventricles: No significant abnormality. Bones/joints: No acute abnormality. Soft tissues: No significant abnormality. Sinuses: No significant abnormality. Mastoid air cells: No significant abnormality. IMPRESSION: No acute intracranial abnormality. Reevaluation Time: 00:20 Last Vital Signs Date Time Temp Pulse Resp B/P (MAP) Pulse Ox O2 Delivery O2 Flow Rate FiO2 05/10/20 23:24 98.4 88 22 189/96 (127) 98 Room Air Status: improved Disposition: ADMITTED [place]PAT[place] - [facility] Admit Decision Time: 01:30 Condition: Stable Rosie Corrales D.O. May 11, 2020 00:20
[2020-05-11 00:22] LABS: ANION GAP 10 mmol/L (5-15); BLOOD UREA NITROGEN 26 mg/dL (7-18); CALCIUM 8.4 MG/DL (8.5-10.1); CARBON DIOXIDE 23 MMOL/L (21-32); CHLORIDE 89 MMOL/L (98-107); CREATININE 1.4 MG/DL (0.55-1.30); POTASSIUM 4.1 MMOL/L (3.5-5.1); SODIUM 122 MMOL/L (136-145)
[2020-05-11 00:23] LABS: ALANINE AMINOTRANSFERASE 9 U/L (12-78); ALBUMIN 3.3 G/DL (3.4-5.0); ALKALINE PHOSPHATASE 140 U/L (46-116); ASPARTATE AMINO TRANSFERASE 10 U/L (15-37); BILIRUBIN,TOTAL 0.6 MG/DL (0.2-1.0); CREATINE KINASE 36 U/L (26-308)
[2020-05-11] MEDS ORDERED: Insulin Human Regular 100units/ml 3ml IV ONE ×2 (00:45→01:45)
--- NOTE | 2020-05-11 01:13 | Diagnostic Imaging Report ---
EXAM: CT Head Without Intravenous Contrast CLINICAL HISTORY: SYNCOPE TECHNIQUE: Axial computed tomography images of the head/brain without intravenous contrast. CTDI is 53.4 mGy and DLP is 1152.4 mGy-cm. One or more of the following dose reduction techniques were used: automated exposure control, adjustment of the mA and/or kV according to patient size, use of iterative reconstruction technique. COMPARISON: No relevant prior studies available. FINDINGS: Brain: No acute hemorrhage, large hypodensity, or significant mass effect. Ventricles: No significant abnormality. Bones/joints: No acute abnormality. Soft tissues: No significant abnormality. Sinuses: No significant abnormality. Mastoid air cells: No significant abnormality. IMPRESSION: No acute intracranial abnormality.
[2020-05-11 04:41] VITALS: BP 131/81
--- NOTE | 2020-05-13 14:56 | Cardiology Report ---
APPROVED REPORT EKG Measurement Heart [id number] SD [id number] [id number] <Conclusion> Normal sinus rhythm Normal ECG
== END 2020-05-11 04:43 | disposition other institution (70) ==
LOC: EDBD 23:20 → EMR 05-11 00:19
DX: E11.65 Type 2 diabetes mellitus with hyperglycemia (principal); D64.9 Anemia, unspecified; Z79.4 Long term (current) use of insulin
CPT/HCPCS: 36415; 70450; 80053; 81003; 82010; 82550; 82803; 83036; 83605; 83690; 83880; 83930; 84484; 85025; 85610; 85730; 93005; 96361; 96374; 96376; J1815; U0002; Z7502; 99285